=== PATIENT | female | born 1995 | race Caucasian/White ===

== ENCOUNTER 2017-07-06 16:43 | Emergency (ER) | payer BC, MEDICAID ==
[~2017-07-06] VITALS: Ht 167.6 cm; Wt 121.0 kg
[2017-07-06 16:46] VITALS: BP 119/79
[2017-07-06 17:34] LABS: RAPID INFLUENZA A Negative (Negative); RAPID INFLUENZA B Negative (Negative)
== END 2017-07-06 18:24 | disposition home or self-care (01) ==
LOC: ED 17:52
DX: O26.892 Other specified pregnancy related conditions, second trimester (principal); Z3A.17 17 weeks gestation of pregnancy; O99.212 Obesity complicating pregnancy, second trimester
CPT/HCPCS: 87081; 87400; 87880; 99284

== ENCOUNTER 2017-09-19 06:19 | Outpatient (CLI) | payer MEDICAID ==
[~2017-09-19] VITALS: Ht 167.6 cm; Wt 119.0 kg
[2017-09-19 07:15] LABS: MICROSCOPIC INDICATED
[2017-09-19] MEDS ORDERED: CEFTRIAXONE 1,000 MG IM ONE (08:00)
[2017-09-19] MEDS ORDERED: LIDOCAINE-MPF 1%, 5ML ONE (08:12)
[2017-09-19] MEDS ORDERED: PREN1TAB10 PO (08:37)
[2017-09-19] MEDS ORDERED: NITR100C56 PO (08:37)
== END 2017-09-19 08:52 | disposition home or self-care (01) ==
LOC: LDOP 06:19
PROVIDERS: ATTEND Obstetrics & Gynecology Female Pelvic Medicine and Reconstructive Surgery
DX: O26.892 Other specified pregnancy related conditions, second trimester (principal); R10.9 Unspecified abdominal pain; Z3A.26 26 weeks gestation of pregnancy
CPT/HCPCS: 59025; 81001; 87086; 96372; 99201; J0696; G0463